=== PATIENT | male | born 1965 | race Caucasian/White ===

== ENCOUNTER 2020-03-18 07:46 | Inpatient (IN) | payer MEDICARE ==
[~2020-03-18] VITALS: Ht 175.3 cm; Wt 97.5 kg
[~2020-03-18 07:46] MED LIST: AMBIEN10 MG PO; CYMBALTA60 MG PO; HYDROCODONE-APA1 TAB PO; NEURONTIN 300300 MG PO; NORVASC5 MG PO; PRAVACHOL20 MG PO; PROTONIX40 MG PO; ROBAXIN-750750 MG PO; ULTRAM50 MG PO; VOLTAREN75 MG PO; ZANAFLEX4 MG PO; ZESTRIL10 MG PO
[2020-03-18 08:30] LABS: BASOPHILS 0.1 % (0-2); EOSINOPHILS 0.4 % (0-7); HEMATOCRIT 42.9 % (42.0-54.0); HEMOGLOBIN 14.7 g/dL (13.5-17.5); IMMATURE GRANULOCYTES 0.8 % (0-5); LYMPHOCYTES 11.2 % (15-50); MCH 32.4 pg (26.0-34.0); MCHC 34.3 g/dL (31.0-37.0); MCV 94.5 fL (80.0-100.0); MEAN PLATELET VOLUME 10.3 fL (7.4-10.4); MONOCYTES 11.8 % (2-11); NEUTROPHILS 75.7 % (40-80); RBC 4.54 10x6/uL (4.20-6.10); RDW 12.4 % (11.5-14.5); WBC 7.8 10x3/uL (4.8-10.8)
[2020-03-18 08:31] LABS: PLATELET COUNT 163 10x3/uL (130-400)
[2020-03-18 08:32] LABS: CALC OSMOLALITY 275 mosm/kg (275-300); CALCIUM 8.5 mg/dL (8.5-10.1); CHLORIDE - SERUM 97 mmol/L (98-107); CREATININE - SERUM 2.7 mg/dL (0.6-1.3); GLUCOSE 136 mg/dL (74-106); POTASSIUM - SERUM 3.6 mmol/L (3.5-5.1); SODIUM 135 mmol/L (136-145); UREA NITROGEN 24 mg/dL (7-18); eGFR NON AFRICAN AMERICAN 26 mL/min (90-120)
[2020-03-18 08:41] LABS: ALKALINE PHOSPHATASE 28 U/L (30-120); ALT (SGPT) 44 U/L (10-68); AMYLASE - SERUM 47 U/L (25-115); BILIRUBIN - TOTAL 1.03 mg/dL (0.2-1.3); LIPASE 56 U/L (73-393); PROTEIN - SERUM 7.6 g/dL (6.4-8.2); TROPONIN-I < 0.017 ng/mL (0.000-0.060)
--- NOTE | 2020-03-18 08:56 | NUR ---
COVID SWAB OBTAINED AND SENT TO THE LAB.
[2020-03-18 09:05] VITALS: BP 149/89
--- NOTE | 2020-03-18 09:14 | NUR ---
ERP INFORMED OF CRITICAL LACTIC ACID==3.9
[2020-03-18 13:05] VITALS: BP 140/77
[2020-03-18] MEDS ORDERED: COZAAR50 MG PO (13:50)
[2020-03-18] MEDS ORDERED: TRIAMTERENE-HC1 EAC3 PO (13:51)
[2020-03-18] MEDS ORDERED: CARAFATE1 G PO (13:51)
[2020-03-18] MEDS ORDERED: CYMBALTA30 MG PO (13:52)
[2020-03-18] MEDS ORDERED: CRESTOR10 MG PO (13:52)
[2020-03-18] MEDS ORDERED: HYDROCODON-ACE1 EA10 PO (13:53)
[2020-03-18] MEDS ORDERED: TRAZODONE HCL150 MG PO (13:53)
[2020-03-18] MEDS ORDERED: NEURONTIN600 MG PO (13:53)
[2020-03-18] MEDS ORDERED: ZANAFLEX4 MG PO (13:54)
[2020-03-18 15:13] LABS: INR 0.94 (0.85-1.17); PROTIME 12.6 SECONDS (11.6-15.0)
--- NOTE | 2020-03-18 15:15 | NUR ---
REC'D TO ROOM 2225 VIA WC ACCOMPANIED BY ER STAFF TO ROOM. ROOM WAS NOT CLEAN AT THE TIME PT ARRIVED TO ROOM AND HAD TO SIT IN HALLWAY UNTIL CLEAN. RESP EVEN AND UNLABORED WITH NO DISTRESS NOTED OR VOICED. IV NOTED TO LEFT AC. ASSESMENT COMPLETED. C/ IN REACH AT BEDSIDE.
--- NOTE | 2020-03-18 19:10 | NUR ---
RECEIVED REPORT, ASSUMED CARE, DENIES PAIN, BREATHING EVEN UNLABRORED, CALL LIGHT IN REACH, BED LOWEST POSITION, NO S/S OF DISTRESS NOTED, IV PATENT, AT BEDSIDE
[2020-03-18 19:28] VITALS: BP 133/73; BMI 31.8
[2020-03-18 19:35] LABS: BILIRUBIN NEGATIVE (NEGATIVE); KETONE NEGATIVE (NEGATIVE); NITRITE NEGATIVE (NEGATIVE); UROBILINOGEN NORMAL (NORMAL)
[2020-03-19 04:00] VITALS: BP 125/70; BP 149/68
--- NOTE | 2020-03-19 04:17 | NUR ---
I have reviewed this patient and I concur with the Shift Assessment completed by the Licensed Practical Nurse today this shift.
[2020-03-19 05:56] LABS: BASOPHILS 0 % (0-2); EOSINOPHILS 0 % (0-7); HEMATOCRIT 34.7 % (42.0-54.0); IMMATURE GRANULOCYTES 0.1 % (0-5); LYMPHOCYTES 9.9 % (15-50); MCHC 33.4 g/dL (31.0-37.0); MCV 95.6 fL (80.0-100.0); MEAN PLATELET VOLUME 10.3 fL (7.4-10.4); PLATELET COUNT 163 10x3/uL (130-400); RDW 12.2 % (11.5-14.5); WBC 6.9 10x3/uL (4.8-10.8)
[2020-03-19 06:08] LABS: HEMOGLOBIN 11.6 g/dL (13.5-17.5); RBC 3.63 10x6/uL (4.20-6.10)
[2020-03-19 06:16] LABS: ANION GAP 14.5 mmol/L (8-16); BILIRUBIN - TOTAL 0.37 mg/dL (0.2-1.3); CARBON DIOXIDE 25.2 mmol/L (21.0-32.0); POTASSIUM - SERUM 3.7 mmol/L (3.5-5.1); PROTEIN - SERUM 6.2 g/dL (6.4-8.2)
[2020-03-19 06:22] LABS: CREATININE - SERUM 1.5 mg/dL (0.6-1.3)
[2020-03-19 07:55] VITALS: Ht 175.3 cm; Wt 97.5 kg
--- NOTE | 2020-03-19 09:00 | NUR ---
ASSESSMENT PER FLOW SHEET. PATIENT IS WITHOUT DISTRESS.COMPLAINS OF ABDOMINAL PAIN AND REPORTS LOOSE STOOLS.
[2020-03-19 09:49] VITALS: BP 109/59
[2020-03-19 12:42] VITALS: BP 126/70
--- NOTE | 2020-03-19 13:00 | NUR ---
NS W/ 20KCL INFUSION CONT'D AND SENT WITH PT. TO FLOOR. INFUSION STOP TIME WAS 1400. LEVAQUIN WAS STOPPED AT 1230.
[2020-03-19 17:39] VITALS: BP 119/62
--- NOTE | 2020-03-19 18:39 | NUR ---
REMAINS WITHOUT NEEDS,WITHOUT CHANGE. CONT PLAN OF CARE
--- NOTE | 2020-03-19 19:51 | NUR ---
RECEIVED REPORT, ASSUMED CARE, DENIES PAIN, BREATHING EVEN UNLABRORED, CALL LIGHT IN REACH, BED LOWEST POSITION, NO S/S OF DISTRESS NOTED, IV PATENT, DENIES NEEDS AT THIS TIME
[2020-03-19 20:00] VITALS: BP 131/78
[2020-03-20] VITALS: BP 116/67
--- NOTE | 2020-03-20 03:11 | NUR ---
I have reviewed this patient and I concur with the Shift Assessment completed by the Licensed Practical Nurse today this shift.
[2020-03-20 04:00] VITALS: BP 112/68
[2020-03-20 06:32] LABS: BASOPHILS 0.1 % (0-2); EOSINOPHILS 0 % (0-7); HEMOGLOBIN 11.4 g/dL (13.5-17.5); IMMATURE GRANULOCYTES 0.4 % (0-5); LYMPHOCYTES 13.4 % (15-50); MCH 31.4 pg (26.0-34.0); MCHC 32.6 g/dL (31.0-37.0); MCV 96.4 fL (80.0-100.0); MEAN PLATELET VOLUME 10.5 fL (7.4-10.4); MONOCYTES 9.5 % (2-11); NEUTROPHILS 76.6 % (40-80); PLATELET COUNT 200 10x3/uL (130-400); RBC 3.63 10x6/uL (4.20-6.10); RDW 12.4 % (11.5-14.5); WBC 7.4 10x3/uL (4.8-10.8)
[2020-03-20 06:49] LABS: ANION GAP 13.5 mmol/L (8-16); BILIRUBIN - TOTAL 0.28 mg/dL (0.2-1.3); CALCIUM 8.4 mg/dL (8.5-10.1); CARBON DIOXIDE 25.1 mmol/L (21.0-32.0); POTASSIUM - SERUM 3.6 mmol/L (3.5-5.1); PROTEIN - SERUM 5.9 g/dL (6.4-8.2)
[2020-03-20 06:50] LABS: CREATININE - SERUM 1.1 mg/dL (0.6-1.3)
--- NOTE | 2020-03-20 09:13 | NUR ---
ASSESSMENT PER FLOW SHEET. PATIENT IS WITHOUT DISTRESS. AT BEDSIDE. CALL LIGHT IN REACH
[2020-03-20 09:17] VITALS: BP 125/69
[2020-03-20] MEDS ORDERED: FLORAJEN3 CAPS460 MG PO (12:32)
[2020-03-20] MEDS ORDERED: QUESTRAN LIG1 PACKET PO (12:33)
[2020-03-20] MEDS ORDERED: FLAGYL500 MG PO (12:33)
[2020-03-20] MEDS ORDERED: LEVOFLOXACIN500 MG PO (12:33)
[2020-03-20] MEDS ORDERED: MEDROL DOSE PACK4 MG PO (12:34)
[2020-03-20 13:08] VITALS: BP 136/74
--- NOTE | 2020-03-20 13:18 | NUR ---
PT PHARMACY CLOSED UNTIL SATURDAY. RX'S CALLED TO [facility] ON COVEL REQUESTED.
--- NOTE | 2020-03-20 13:52 | NUR ---
TOLERATED REG DIET WITHOUT NAUSEA AND VOMITING. IV DCD WITH CATH TIP INTACT.DISCHARGE INSTRUCTIONS,STATES UNDERSTANDING.PATIENT GETTING DRESSED FOR DC HOME
--- NOTE | 2020-03-20 14:03 | NUR ---
LEFT UNIT VIA WHEELCHAIR FOR TRANSPORT HOME
--- NOTE | 2020-03-20 16:37 | MORECARE ---
CASE MANAGEMENT DISCHARGE SUMMARY PATIENT: ABBEY POND UNIT: [id number] ADM DATE: 03/18/20 AGE: 55 : 65 SEX: M ROOM/BED: D.2225 AUTHOR: FABIANDOC PHYSICIAN: REFERRING PHYSICIAN: KRIS WASHINGTON MD DATE OF SERVICE: 03/20/20 Discharge Plan Patient Name: ABBEY POND Facility: [facility]:[place] : 1965 Planned Disposition: Home or Self Care Anticipated Discharge Date: Discharge Date: 03/20/2020 Expected LOS: Initial Reviewer: [email or web address] Initial Review Date: 03/18/2020 Generated: 03/20/20 5:37 pm Comments DCP- Discharge Planning Updated by [email or web address]: Ellen Vieira on 03/20/20 3:[address] Patient Name: ABBEY POND Admission Status: ER Accout number: [id number] Admission Date: 03-18-2020 : 1965 Admission Diagnosis: Attending: KRIS CARRASCO Current LOS: 2 Anticipated DC Date: Planned Disposition: Home or Self Care Primary Insurance: [facility] MEDICARE SOLUTIONS Discharge Planning Comments: CM met with patient to complete initial dc planning assessment. CM educated patient on the CM role and verbal consent given by patient to complete assessment. CM verified patient's address, phone number, and emergency contact phone numbers. Patient lives at home with his and states he is independent with his needs. At discharge patient plans to return home and feels this is a safe discharge. CM discussed availability of home health, rehab services, and medical equipment. Patient denied known discharge needs at this time. declination signed for any additional services. Transportation provider at discharge will be his who is at bedside. CM will continue to follow and will assist as needed with dc plans/needs. DC IMM delivered, explained, signed by the patient, and placed in chart. Signed form also left with the patient. [place] Burner Operator: Ellen Vieira MSN,RN,CMN DCPIA - Discharge Planning Initial Assessment Updated by [id number]: Ellen Vieira on 03/20/20 4:31 pm * Is the patient Alert and Oriented? Yes * How many steps to enter\exit or inside your home? 0/0 * PCP [facility] * [facility] * Preadmission Environment Home with Family * ADLs Independent * Additional services required to return to the preadmission environment? No * Can the patient safely return to the preadmission environment? Yes * Has this patient been hospitalized within the prior 30 days at any hospital? No Coverage Notice Reviewer: [email or web address] Jelena Vieira Notice Issued Date-Time: 03/20/2020 13:40 Notice Type: IM Discharge Notice Notice Delivered To: Patient Relationship to Patient: Nurse Behavioral Health Care Name: Delivery Method: HAND - Hand Delivered Leila Days: Prior Verbal Notification: Recipient Understood Notice: Yes Recipient Signature: Yes Med Rec Note Co-signed by Attending: Coverage Notice Comment: dc imm Reviewer: [email or web address] Jelena Vieira Notice Issued Date-Time: 03/20/2020 13:40 Notice Type: Patient Choice Letter Notice Delivered To: Patient Relationship to Patient: Nurse Behavioral [facility] Name: Delivery Method: HAND - Hand Delivered Leila Days: Prior Verbal Notification: Recipient Understood Notice: Yes Recipient Signature: Yes Med Rec Note Co-signed by Attending: Coverage Notice Comment: declined hh Patient Name: ABBEY POND Page [id number] at 1637 All edits/amendments must be made on the electronic document DICTATION DATE: 03/20/201636 AUDIO RECORDING ENGINEER: ASHER 03/20/20 163 RPT#: [id number] DC DATE:03/20/20 STATUS: DIS IN [id number] [place] [address] END OF REPORT
--- NOTE | 2020-03-22 16:12 | MORECARE ---
CASE MANAGEMENT DISCHARGE SUMMARY PATIENT: ABBEY POND UNIT: [id number] ADM DATE: 03/18/20 AGE: 55 : 65 SEX: M ROOM/BED: D.2225 AUTHOR: TRISTON PERALTA PHYSICIAN: REFERRING PHYSICIAN: KRIS WASHINGTON MD DATE OF SERVICE: 03/22/20 Discharge Plan Patient Name: ABBEY POND Facility: [facility]:[place] : 1965 Planned Disposition: Home or Self Care Anticipated Discharge Date: Discharge Date: 03/20/2020 Expected LOS: Initial Reviewer: [email or web address] Initial Review Date: 03/18/2020 Generated: 03/22/20 5:12 pm DCP- Discharge Planning Updated by [email or web address]: Ellen Vieira on 03/20/20 3:[address] Patient Name: ABBEY POND Admission Status: ER Accout number: [id number] Admission Date: 03-18-2020 : 1965 Admission Diagnosis: Attending: KRIS CARRASCO Current LOS: 2 Anticipated DC Date: Planned Disposition: Home or Self Care Primary Insurance: [facility] MEDICARE SOLUTIONS Discharge Planning Comments: CM met with patient to complete initial dc planning assessment. CM educated patient on the CM role and verbal consent given by patient to complete assessment. CM verified patient's address, phone number, and emergency contact phone numbers. Patient lives at home with his and states he is independent with his needs. At discharge patient plans to return home and feels this is a safe discharge. CM discussed availability of home health, rehab services, and medical equipment. Patient denied known discharge needs at this time. declination signed for any additional services. Transportation provider at discharge will be his who is at bedside. CM will continue to follow and will assist as needed with dc plans/needs. DC IMM delivered, explained, signed by the patient, and placed in chart. Signed form also left with the patient. Marketing Services Vice President: Ellen Vieira MSN,RN,CMN DCPIA - Discharge Planning Initial Assessment Updated by [email or web address]: Ellen Vieira on 03/20/20 4:31 pm * Is the patient Alert and Oriented? Yes * How many steps to enter\exit or inside your home? 0/0 * PCP [facility] * [facility] * Preadmission Environment Home with Family * ADLs Independent * Additional services required to return to the preadmission environment? No * Can the patient safely return to the preadmission environment? Yes * Has this patient been hospitalized within the prior 30 days at any hospital? No Coverage Notice Reviewer: [id number] Jelena Vieira Notice Issued Date-Time: 03/20/2020 13:40 Notice Type: IM Discharge Notice Notice Delivered To: Patient Relationship to Patient: Non Acoustic Operator Name: Delivery Method: HAND - Hand Delivered Leila Days: Prior Verbal Notification: Recipient Understood Notice: Yes Recipient Signature: Yes Med Rec Note Co-signed by Attending: Coverage Notice Comment: dc imm Reviewer: [email or web address] Jelena Vieira Notice Issued Date-Time: 03/20/2020 13:40 Notice Type: Patient Choice Letter Notice Delivered To: Patient Relationship to Patient: Non Acoustic Operator Name: Delivery Method: HAND - Hand Delivered Leila Days: Prior Verbal Notification: Recipient Understood Notice: Yes Recipient Signature: Yes Med Rec Note Co-signed by Attending: Coverage Notice Comment: declined hh Last DP export: 03/20/20 3:37 pm Patient Name: ABBEY POND Page [id number] at 1612 All edits/amendments must be made on the electronic document DICTATION DATE: 03/22/20 161 AIRPLANE MECHANIC APPRENTICE: ASHER 03/22/20 1612 RPT#: [id number] DC DATE:03/20/20 STATUS: DIS IN [address] [place] [address] END OF REPORT
== END 2020-03-20 14:03 | disposition home or self-care (01) | DRG 872 ==
LOC: D.ER 07:46 → D.MS 09:58
PROVIDERS: Emergency Medicine; ADMIT Family Medicine; ATTEND Family Medicine
DX: A41.9 Sepsis, unspecified organism (principal); N17.9 Acute kidney failure, unspecified; A08.8 Other specified intestinal infections; R50.9 Fever, unspecified; R00.0 Tachycardia, unspecified; K76.0 Fatty (change of) liver, not elsewhere classified; I10 Essential (primary) hypertension; G89.29 Other chronic pain; N20.0 Calculus of kidney